=== PATIENT | male | born 1940 ===

== ENCOUNTER 2018-10-19 09:57 | Inpatient (IN) | payer MEDICARE ==
[2018-10-19] MEDS: Sodium Chloride 0.9% 1,000 ML IV SCH ×2 (11:07→21:54)
[2018-10-19 11:08] LABS: BASO # 0.1 K/uL (0.0-0.2); BASO % 1.2 % (0.0-2.0); EOS # 0.1 K/uL (0.0-0.7); EOS % 1.2 % (0.0-4.0); HEMOGLOBIN 13.8 g/dL (12.0-18.0); LYMPH # 1.6 K/uL (1.0-4.3); LYMPH % 16.1 % (20.0-40.0); MEAN CELL VOLUME 80.5 fl (80.0-94.0); MEAN CORPUSCULAR HEMOGLOBIN 26.1 pg (27.0-31.0); MEAN CORPUSCULAR HGB CONC 32.5 g/dL (33.0-37.0); MEAN PLATELET VOLUME 8.9 fl (7.2-11.7); MONO # 0.8 K/uL (0.0-0.8); MONO % 7.9 % (0.0-10.0); NEUT # 7.3 K/uL (1.8-7.0); NEUT % 73.6 % (50.0-75.0); RBC 5.27 Mil/uL (4.40-5.90); RED CELL DISTRIBUTION WIDTH 14.9 % (11.5-14.5); WHITE BLOOD COUNT 9.9 K/uL (4.8-10.8)
[2018-10-19 11:13] LABS: INR 1.1; PROTHROMBIN TIME 12.8 Seconds (9.8-13.1)
[2018-10-19 11:16] LABS: PARTIAL THROMBOPLASTIN TIME 30.8 Seconds (25.6-37.1)
[2018-10-19 11:17] LABS: ALB/GLOB RATIO 1.2 (1.0-2.1); ALBUMIN 3.7 g/dL (3.5-5.0); AST/SGOT 22 U/L (17-59); BLOOD UREA NITROGEN 23 mg/dl (9-20); GFR NON-AFRICAN AMERICAN > 60; HDL CHOLESTEROL 47 MG/DL (30-70)
[2018-10-19 11:22] LABS: ALT/SGPT 34 U/L (21-72)
[2018-10-19 11:28] LABS: LDL CHOLESTEROL 98 mg/dL (0-129)
--- NOTE | 2018-10-19 12:23 | ED PDOC ---
HPI:STROKE - Time Time: 10:25 - Historian Historian: Patient - Chief Complaint Chief Complaint: Numbness - Onset Date: 10/18/18 - Timing Timing: Currently Symptomatic - Location Locate left: Upper extremity - Severity of pain Maximum severity:: None Severity Current: None - Exacerbated by Exacerbated by:: Nothing - Relieved by Relieved by:: Nothing - TPA Positive for Contraindication: Yes Reason tPA is not being Administered: symptoms ongoing >3hrs and NIHSS <4 - Notes: Notes:: 77yo male c/o left 3/4/5th finger numbness and difficulty grasping objects yesterday. Per family member he could not get his glove on L hand appropriately, kept dropping it yesterday. Symptoms started yesterday afternoon. Associated w mild headache overnight. Denies change in speech, vision, gait, denies facial droop or syncope. Family notes he had similar symptoms in the past and was told it was a stroke. Takes aspirin 81mg daily last yesterday. NIHSS Stroke Scale - Date/Time Evaluation Performed Date Performed: 10/19/18 Time Performed: 10:30 When Was NIHSS Performed: Baseline - How Severe is the Stroke Level of Consciousness: 0=Alert LOC to Questions: 0=Both comments correct LOC to commands: 0=Obeys both correctly Best Gaze: 0=Normal Visual: 0=No visual loss Facial: 0=Normal Motor Arm - Left: 0=No drift Motor Arm - Right: 0=No drift Motor Leg - Left: 0=No drift Motor Leg - Right: 0=No drift Limb Ataxia: 0=Absent Sensory: 1=Mild to moderate loss Best Language: 0=No aphasia Dysarthia: 0=Normal articulation Extinction & Inattention (Neglect): 0=Normal, no object Score: 1 rTPA Inclusion/Exclusion - Refusal of Treatment Patient Refused Treatment: No - Inclusion Criteria for Altepase Patient is 18 years or Older: Yes The Clinical Diagnosis of Ischemic Stroke That is Causing a Potentially Disabling Neurological Deficit: Yes Time of Onset is Well Established to be Less Than 270 Minute Before Treatment Wo uld Begin: No Risk/Benefit Discussed With Patient/Family Member Present: Yes - Warning to TPA With Conditions Condition: Stroke Serevity Too Mild Past Medical History Reviewed: Historical Data, Nursing Documentation, Vital Signs Vital Signs: Last Vital Signs Temp 97.9 F 10/19/18 10:04 Pulse 62 10/19/18 10:57 Resp 19 10/19/18 10:04 BP 163/92 H 10/19/18 10:57 Pulse Ox 96 10/19/18 10:57 - Medical History PMH: HTN Denies: Diabetes, Chronic Kidney Disease - Surgical History Surgical History: CABG - Family History Family History: States: Unknown Family Hx - Living Arrangements Living Arrangements: With Family - Social History Current smoker - smoking cessation education provided: No - Home Medications Home Medications: Ambulatory Orders Medication Instructions Recorded Aspirin [Aspirin Chewable] 81 mg PO DAILY 10/19/18 Levothyroxine [Synthroid] 25 mcg PO DAILY 10/19/18 Metoprolol Succinate XL [Toprol XL] 50 mg PO Q12 10/19/18 RX: Olmesartan [BenicarNf] 40 mg PO DAILY 10/19/18 Rosuvastatin Calcium [Crestor] 10 mg PO DAILY 10/19/18 - Allergies Allergies/Adverse Reactions: Allergies Allergy/AdvReac Type Severity Reaction Status Date / Time No Known Allergies Allergy Verified 10/19/18 10:04 Review of Systems Constitutional: Negative for: Fever Cardiovascular: Negative for: Chest Pain Respiratory: Negative for: Cough, Shortness of Breath Gastrointestinal: Negative for: Nausea, Vomiting Genitourinary Male: Negative for: Dysuria Musculoskeletal: Negative for: Neck Pain, Shoulder Pain Skin: Negative for: Rash Neurological: Positive for: Weakness, Numbness, Headache. Negative for: Incoordination, Change in Speech, Confusion, Seizures, Altered Mental Status, Dizziness Physical Exam - Reviewed Nursing Documentation Reviewed: Yes - Physical Exam Appears: Positive for: Well, Non-toxic, No Acute Distress Head Exam: Positive for: ATRAUMATIC, NORMAL INSPECTION, NORMOCEPHALIC Skin: Positive for: Normal Color, Warm, DRY Eye Exam: Positive for: EOMI, Normal appearance, PERRL ENT: Positive for: Normal ENT Inspection Neck: Positive for: Normal, Painless ROM Cardiovascular/Chest: Positive for: Regular Rate, Rhythm Respiratory: Positive for: CNT, Normal Breath Sounds Gastrointestinal/Abdominal: Positive for: Normal Exam, Soft Back: Positive for: Normal Inspection Extremity: Positive for: Normal ROM Neurologic/Psych: Positive for: Alert, Oriented, Other (mild subjective sensory loss ulnar distribution L hand, motor grossly intact) - Laboratory Results Result Diagrams: 10/20/18 06:15 10/20/18 06:15 Lab Results: PT 12.8 Seconds (9.8-13.1) 10/19/18 10:55 INR 1.1 10/19/18 10:55 APTT 30.8 Seconds (25.6-37.1) 10/19/18 10:55 Troponin I 0.0190 ng/mL (0.00-0.120) 10/19/18 10:55 Total Bilirubin 1.3 mg/dl (0.2-1.3) 10/19/18 10:55 AST 22 U/L (17-59) 10/19/18 10:55 ALT 34 U/L (21-72) 10/19/18 10:55 Alkaline Phosphatase 77 U/L (38-126) 10/19/18 10:55 Total Protein 6.9 G/DL (6.3-8.2) 10/19/18 10:55 Albumin 3.7 g/dL (3.5-5.0) 10/19/18 10:55 Globulin 3.2 gm/dL (2.2-3.9) 10/19/18 10:55 Albumin/Globulin Ratio 1.2 (1.0-2.1) 10/19/18 10:55 - ECG ECG: Positive for: Interpreted By Me ECG Rhythm: Positive for: Sinus Bradycardia, ST/T Changes, Nonspecific Changes Rate: 58 O2 Sat by Pulse Oximetry: 96 Pulse Ox Interpretation: Normal - Radiology X-Ray: Interpreted by Me X-Ray Interpretation: No Acute Disease (sternal wires) Medical Decision Making Medical Decision Making: not candidate for TPA given time now >18hrs and NIHSS <4 workup for cerebral ischemia, ICH vs peripheral nerve injury/apraxia, etc initiated labs reviewed clinically unremarkable PMD in [place] Patient took +ASA this morning as outpatient, he also takes crestor and BP medications daily. D/w Dr Leone cushion installer neuro rec adding plavix and admit for CVA workup D/w Dr Babcock cushion installer medicine Disposition - Clinical Impression Clinical Impression: Hand numbness - Patient ED Disposition Is Patient to be Admitted: Yes Counseled Patient/Family Regarding: Studies Performed, Diagnosis, Need For Followup - Disposition Disposition Time: 13:00 Condition: FAIR - Pt Status Changed To: Hospital Disposition Of: Observation - POA Present On Arrival: None
--- NOTE | 2018-10-19 12:45 | RAD ---
Date of service: 10/19/2018 HISTORY: Code Stroke COMPARISON: 05/02/2009 FINDINGS: LUNGS: No active pulmonary disease. PLEURA: No significant pleural effusion identified, no pneumothorax apparent. CARDIOVASCULAR: No aortic atherosclerotic calcification present. Normal heart size. Sternotomy wires noted. No pulmonary vascular congestion. OSSEOUS STRUCTURES: No significant abnormalities. VISUALIZED UPPER ABDOMEN: Normal. OTHER FINDINGS: None. IMPRESSION: No active disease.
--- NOTE | 2018-10-19 13:37 | CT ---
Date of service: 10/19/2018 PROCEDURE: CT HEAD WITHOUT CONTRAST. HISTORY: L hand numbness, headaches COMPARISON: 05/02/2009 TECHNIQUE: Axial computed tomography images were obtained through the head/brain without intravenous contrast. Supplemental Coronal and Sagittal projections created and reviewed. Radiation dose: Total exam DLP = 747.68 mGy-cm. This CT exam was performed using one or more of the following dose reduction techniques: Automated exposure control, adjustment of the mA and/or kV according to patient size, and/or use of iterative reconstruction technique. FINDINGS: HEMORRHAGE: No intracranial hemorrhage. BRAIN: No mass effect or edema. Cortical and cerebellar atrophy, periventricular small vessel disease. 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 VENTRICLES: Unremarkable. No hydrocephalus. CALVARIUM: Unremarkable. PARANASAL SINUSES: Unremarkable as visualized. No significant inflammatory changes. MASTOID AIR CELLS: Unremarkable as visualized. No inflammatory changes. OTHER FINDINGS: None. IMPRESSION: No acute intracranial abnormalities. No significant findings to account for the clinical presentation. No significant interval change compared to the prior examination(s).
--- NOTE | 2018-10-19 15:56 | CP.PCM.CON ---
History of Present Illness - History of Present Illness History of Present Illness: Neurology Consultation Note: Consult requested by Dr. Orourke. The patient is a 77-year-old man with a past medical history of HTN, HLD, hypothyroidism, who developed left hand numbness and clumsiness yesterday. He presented to the ED today and was not a candidate for IV tPA due to being outside the time window. Non-contrast CT scan of the head showed chronic lacunar basal ganglia (bilateral) and insular infarcts (left), but no acute findings. Review of Systems - Constitutional Constitutional: As Per HPI - EENT Eyes: absent: As Per HPI, Blind Spots, Blurred Vision, Change in Vision, Decreased Night Vision, Diplopia, Discharge, Dry Eye, Exophthalmos, Floaters, Irritation, Itchy Eyes, Loss of Peripheral Vision, Pain, Photophobia, Requires Corrective Lenses, Sees Flashes, Spots in Vision, Tunnel Vision, Other Visual Disturbances, Loss of Vision, Other Ears: absent: As Per HPI, Decreased Hearing, Ear Discharge, Ear Pain, Tinnitus, Abnormal Hearing, Disequilibrium, Dizziness, Other Nose/Mouth/Throat: absent: As Per HPI, Epistaxis, Nasal Congestion, Nasal Discharge, Nasal Obstruction, Nasal Trauma, Nose Pain, Post Nasal Drip, Sinus Pain, Sinus Pressure, Bleeding Gums, Change in Voice, Dental Pain, Dry Mouth, Dysphagia, Halitosis, Hoarsness, Lip Swelling, Mouth Lesions, Mouth Pain, Odynophagia, Sore Throat, Throat Swelling, Tongue Swelling, Facial Pain, Neck Pain, Neck Mass, Other - Cardiovascular Cardiovascular: absent: As Per HPI, Acrocyanosis, Chest Pain, Chest Pain at Rest, Chest Pain with Activity, Claudication, Diaphoresis, Dyspnea, Dyspnea on Exertion, Edema, Irregular Heart Rhythm, Pain Radiating to Arm/Neck/Jaw, Leg Edema, Leg Ulcers, Lightheadedness, Orthopnea, Palpitations, Paroxysmal Nocturnal Dyspnea, Pedal Edema, Radiating Pain, Rapid Heart Rate, Slow Heart Rate, Syncope, Other - Respiratory Respiratory: absent: As Per HPI, Cough, Dyspnea, Hemoptysis, Dyspnea on Exertion, Wheezing, Snoring, Stridor, Pain on Inspiration, Chest Congestion, Excessive Mucous Production, Change in Mucous Color, Pain with Coughing, Other - Gastrointestinal Gastrointestinal: absent: As Per HPI, Abdominal Pain, Belching, Bloating, Change in Bowel Habits, Change in Stool Character, Coffee Ground Emesis, Constipation, Cramping, Diarrhea, Dyspepsia, Dysphagia, Early Satiety, Excessive Flatus, Fecal Incontinence, Heartburn, Hematemesis, Hematochezia, Loose Stools, Melena, Nausea, Odynophagia, Temesmus, Vomiting, Other - Genitourinary Genitourinary: absent: As Per HPI, Change in Urinary Stream, Difficulty Urinating, Dysuria, Flank Pain, Hematuria, Pyuria, Nocturia, Urinary Incontinence, Urinary Frequency, Urinary Hesitance, Urinary Urgency, Voiding Freq/Small Amts, Freq UTI, Hx Renal/Bladder Calculi, Hx /Renal Surgery, Bladder Distension, Other - Musculoskeletal Musculoskeletal: absent: As Per HPI, Abnormal Gait, Arthralgias, Atrophy, Back Pain, Deformity, Joint Swelling, Limited Range of Motion, Loss of Height, Muscle Cramps, Muscle Weakness, Myalgias, Neck Pain, Numbness, Radiating Pain into Limb, Stiffness, Tingling, Other - Integumentary Integumentary: absent: As Per HPI, Acne, Alopecia, Bleeding Lesions, Change in Hair, Change in Nails, Change in Pigmentation, Changing Lesions, Dry Skin, Erythema, Furuncle, Hirsutism, Lesions, New Lesions, Non-Healing Lesions, Photosensitivity, Pruritus, Rash, Skin Pain, Skin Ulcer, Sores, Striae, Swelling, Unusual Bruising, Wounds, Jaundice, Other - Neurological Neurological: As Per HPI - Endocrine Endocrine: absent: As Per HPI, Change in Body Appearance, Change in Libido, Cold Intolorance, Deepening of Voice, Excessive Sweating, Fatigue, Flushing, Heat Intolorance, Increase in Ring/Shoe/Hat Size, Palpitations, Polydipsia, Polyphagia, Polyuria, Other Past Patient History - Past Social History Smoking Status: Former Smoker - CARDIAC Hx Cardiac Disorders: Yes - PULMONARY Hx Respiratory Disorders: No - NEUROLOGICAL Hx Neurological Disorder: No - HEENT Hx HEENT Problems: No - RENAL Hx Chronic Kidney Disease: No - ENDOCRINE/METABOLIC Hx Endocrine Disorders: No - HEMATOLOGICAL/ONCOLOGICAL Hx Blood Disorders: No - INTEGUMENTARY Hx Dermatological Problems: No - MUSCULOSKELETAL/RHEUMATOLOGICAL Hx Musculoskeletal Disorders: No - GASTROINTESTINAL Hx Gastrointestinal Disorders: No - GENITOURINARY/GYNECOLOGICAL Hx Genitourinary Disorders: No - PSYCHIATRIC Hx Psychophysiologic Disorder: No Hx Substance Use: No - SURGICAL HISTORY Hx Coronary Artery Bypass Graft: Yes - ANESTHESIA Hx Anesthesia: Yes Hx Anesthesia Reactions: No Hx Malignant Hyperthermia: No Meds Allergies/Adverse Reactions: Allergies Allergy/AdvReac Type Severity Reaction Status Date / Time No Known Allergies Allergy Verified 10/19/18 10:04 - Medications Medications: Current Medications Sodium Chloride (Sodium Chloride 0.9%) 1,000 mls @ 100 mls/hr IV .Q10H JOSE Last Admin: 10/19/18 11:07 Dose: 100 mls/hr Physical Exam - Constitutional Appears: Well - Head Exam Head Exam: ATRAUMATIC, NORMAL INSPECTION, NORMOCEPHALIC - Eye Exam Eye Exam: EOMI, Normal appearance, PERRL Pupil Exam: NORMAL ACCOMODATION, PERRL - ENT Exam ENT Exam: Mucous Membranes Moist, Normal Exam - Neck Exam Neck exam: Positive for: Normal Inspection - Respiratory Exam Respiratory Exam: Clear to Auscultation Bilateral, NORMAL BREATHING PATTERN - Cardiovascular Exam Cardiovascular Exam: REGULAR RHYTHM, +S1, +S2 - GI/Abdominal Exam GI & Abdominal Exam: Normal Bowel Sounds, Soft. 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 NIHSS = 2 - Psychiatric Exam Psychiatric exam: Normal Affect, Normal Mood - Skin Skin Exam: Dry, Intact, Normal Color, Warm Results - Vital Signs Recent Vital Signs: Last Vital Signs Temp 97.9 F 10/19/18 10:04 Pulse 61 10/19/18 15:44 Resp 15 10/19/18 15:44 BP 137/80 10/19/18 15:44 Pulse Ox 96 10/19/18 15:44 - Labs Result Diagrams: 10/19/18 10:55 10/19/18 10:55 Labs: Laboratory Results - last 24 hr 10/19/18 10/19/18 10/19/18 10:55 10:55 10:55 WBC 9.9 RBC 5.27 Hgb 13.8 Hct 42.4 MCV 80.5 MCH 26.1 L MCHC 32.5 L RDW 14.9 H Plt Count 229 MPV 8.9 Neut % (Auto) 73.6 Lymph % (Auto) 16.1 L [place] % (Auto) 7.9 Eos % (Auto) 1.2 Baso % (Auto) 1.2 Neut # (Auto) 7.3 H Lymph # (Auto) 1.6 [place] # (Auto) 0.8 Eos # (Auto) 0.1 Baso # (Auto) 0.1 PT 12.8 INR 1.1 APTT 30.8 Sodium 137 Potassium 3.6 Chloride 101 Carbon Dioxide 31 H Anion Gap 9 L BUN 23 H Creatinine 1.1 Est GFR ( Amer) > 60 Est GFR (Non-Af Amer) > 60 POC Glucose (mg/dL) Random Glucose 122 H Calcium 9.0 Total Bilirubin 1.3 AST 22 ALT 34 Alkaline Phosphatase 77 Troponin I 0.0190 Total Protein 6.9 Albumin 3.7 Globulin 3.2 Albumin/Globulin Ratio 1.2 Triglycerides 120 Cholesterol 168 LDL Cholesterol Direct 98 HDL Cholesterol 47 Blood Type Blood Type Confirm Antibody Screen BBK History Checked 10/19/18 10/19/18 10/19/18 10:55 10:56 11:31 WBC RBC Hgb Hct MCV MCH MCHC RDW Plt Count MPV Neut % (Auto) Lymph % (Auto) [place] % (Auto) Eos % (Auto) Baso % (Auto) Neut # (Auto) Lymph # (Auto) [place] # (Auto) Eos # (Auto) Baso # (Auto) PT INR APTT Sodium Potassium Chloride Carbon Dioxide Anion Gap BUN Creatinine Est GFR ( Amer) Est GFR (Non-Af Amer) POC Glucose (mg/dL) 132 H Random Glucose Calcium Total Bilirubin AST ALT Alkaline Phosphatase Troponin I Total Protein Albumin Globulin Albumin/Globulin Ratio Triglycerides Cholesterol LDL Cholesterol Direct HDL Cholesterol Blood Type O POSITIVE Blood Type Confirm O POSITIVE Antibody Screen Negative BBK History Checked No verified bt Assessment & Plan (1) Ischemic stroke Assessment and Plan: Likely due to small vessel disease with CT head showing bilateral basal ganglia and a left insular infarct that are chronic. I recommend the followin. Telemetry 2. MRI brain without contrast, MRA head/neck without contrast 3. Echocardiogram 4. HbA1c, lipid panel, B12, folate, vitamin D level, homocysteine level 5. Give Plavix loading dose 300 mg once, and continue Plavix 75 mg daily along with aspirin 81 mg daily 6. Fluids with NS at 100 mL/hr 7. Permissive HTN (only treat BP higher than 220/110 mm Hg for the next 48 jose carlos rs) 8. PT/OT eval and treatment Thank you very much for allowing me to participate in this patient's care. Status: Acute
[2018-10-19] MEDS ORDERED: Pneumococcal 23-Valent Vaccine IM ONE (18:06)
--- NOTE | 2018-10-19 20:29 | CARD ---
APPROVED REPORT Date of service: 10/19/2018 EKG Measurement Heart [id number] <Conclusion> Sinus bradycardia Left ventricular hypertrophy with repolarization abnormality Inferior infarct, age undetermined Abnormal ECG
[2018-10-20] MEDS: Levothyroxine 25 MCG TAB PO SCH (05:59)
[2018-10-20 07:35] LABS: MEAN CELL VOLUME 82.7 fl (80.0-94.0); MEAN CORPUSCULAR HEMOGLOBIN 26.1 pg (27.0-31.0); MEAN CORPUSCULAR HGB CONC 31.5 g/dL (33.0-37.0); RBC 5.76 Mil/uL (4.40-5.90); RED CELL DISTRIBUTION WIDTH 15.1 % (11.5-14.5); WHITE BLOOD COUNT 12.6 K/uL (4.8-10.8)
[2018-10-20 07:55] LABS: BLOOD UREA NITROGEN 15 mg/dl (9-20); CALCIUM 8.8 mg/dL (8.4-10.2); GFR NON-AFRICAN AMERICAN > 60
--- NOTE | 2018-10-20 13:04 | CP.PCM.HP ---
History of Present Illness - History of Present Illness History of Present Illness: 77 yo male w/ PMHx of HTN, HLD, hypothyroidism presented to ED with left hand numbness/weakness. Patient not candidate for IV tPA due to being outside the time window. CT scan of head showed chronic lacunar basal ganglia (bilateral) and insular infarcts (left). Neurology was consulted. Patient seen and examined at bedside. No complaints offered at this time denies cp, palpitations, headaches, sob. Allergies: as per chart Meds: as per chart Fam Hx: non-contributory Present on Admission - Present on Admission Any Indicators Present on Admission: No Review of Systems - Review of Systems All systems: reviewed and no additional remarkable complaints except (mentioned above) Past Patient History - Past Medical History & Family History Past Medical History?: Yes - Past Social History Smoking Status: Former Smoker - CARDIAC Hx Hypertension: Yes - PULMONARY Hx Respiratory Disorders: No - NEUROLOGICAL Hx Neurological Disorder: No - HEENT Hx HEENT Problems: No - RENAL Hx Chronic Kidney Disease: No - ENDOCRINE/METABOLIC Hx Endocrine Disorders: No - HEMATOLOGICAL/ONCOLOGICAL Hx Blood Disorders: No Hx AIDS: No Hx Human Immunodeficiency Virus (HIV): No - INTEGUMENTARY Hx Dermatological Problems: No - MUSCULOSKELETAL/RHEUMATOLOGICAL Hx Musculoskeletal Disorders: No Hx Falls: No - GASTROINTESTINAL Hx Gastrointestinal Disorders: No - GENITOURINARY/GYNECOLOGICAL Hx Genitourinary Disorders: No - PSYCHIATRIC Hx Psychophysiologic Disorder: No Hx Substance Use: No - SURGICAL HISTORY Hx Coronary Artery Bypass Graft: Yes - ANESTHESIA Hx Anesthesia: Yes Hx Anesthesia Reactions: No Hx Malignant Hyperthermia: No Has any member of the family had a problem w/ anesthesia?: No Meds Allergies/Adverse Reactions: Allergies Allergy/AdvReac Type Severity Reaction Status Date / Time No Known Allergies Allergy Verified 10/19/18 10:04 Physical Exam - Constitutional Appears: Non-toxic, No Acute Distress - Head Exam Head Exam: NORMAL INSPECTION - Eye Exam Eye Exam: Normal appearance - Neck Exam Neck exam: Positive for: Normal Inspection - Respiratory Exam Respiratory Exam: NORMAL BREATHING PATTERN - Cardiovascular Exam Cardiovascular Exam: +S1, +S2 - GI/Abdominal Exam GI & Abdominal Exam: Soft - Extremities Exam Extremities exam: Positive for: normal inspection - Neurological Exam Neurological exam: Alert, Oriented x3 - Psychiatric Exam Psychiatric exam: Normal Affect, Normal Mood - Skin Skin Exam: Normal Color, Warm Results - Vital Signs Recent Vital Signs: Last Vital Signs Temp 99.4 F 10/20/18 11:48 Pulse 86 10/20/18 11:48 Resp 18 10/20/18 11:48 BP 168/76 H 10/20/18 11:48 Pulse Ox 96 10/20/18 11:48 - Labs Result Diagrams: 10/21/18 06:45 10/21/18 04:00 Labs: Laboratory Results - last 24 hr 10/19/18 10/20/18 10/20/18 10:55 06:15 06:15 WBC 12.6 H RBC 5.76 Hgb 15.0 Hct 47.7 MCV 82.7 D MCH 26.1 L MCHC 31.5 L RDW 15.1 H Plt Count 248 Sodium 141 Potassium 3.8 Chloride 97 L Carbon Dioxide 30 Anion Gap 18 BUN 15 Creatinine 1.0 Est GFR ( Amer) > 60 Est GFR (Non-Af Amer) > 60 Random Glucose 102 Hemoglobin A1c 5.8 Calcium 8.8 Assessment & Plan (1) Ischemic stroke Status: Acute - Assessment and Plan (Free Text) Assessment: available diagnostic data reviewed neurology on board, appreciate recommendations pending MRI/MRA pending labs pending echo monitor labs monitor vitals PT eval pending rest of plan as ordered
--- NOTE | 2018-10-20 13:22 | CARD ---
APPROVED REPORT Date of service: 10/20/2018 EXAM: Two-dimensional and M-mode echocardiogram with Doppler and color Doppler. Other Information Quality : FairRhythm : NSR Technically limited study due to Poor parasternal windows INDICATION Numbness lt hand Surgery/Intervention CABG: Aortic Valve AoV Peak Mzndgvpg605.8cm/sAoV VTI31.7cmAO Peak GR.11mmHg LVOT Peak Xuywnspm333.4cm/sLVOT VTI27.38cmAO Mean GR.6mmHg Mitral Valve MV E Kwqmauxb27.5cm/sMV DECEL [id number] A Mjzmfnoe53.9cm/s MV CIB54haA/A ratio0.8MVA (PHT)4.21cm2 TDI Lateral E' Peak V9.78cm/sMedial E' Peak V7.58cm/sE/Lateral E'7.7 E/Medial E'10.0 LEFT VENTRICLE The left ventricle is normal size. There is normal left ventricular wall thickness. The left ventricular systolic function is normal. The estimated ejection fraction is 60-65% No regional wall motion abnormalities noted.. Transmitral Doppler flow pattern is Grade I-abnormal relaxation pattern. No left ventricle thrombus noted on this study. There is no ventricular septal defect visualized. There is no left ventricular aneurysm. There is no mass noted in the left ventricle. RIGHT VENTRICLE The right ventricle is normal size. There is normal right ventricular wall thickness. The right ventricular systolic function is normal. ATRIA The left atrium size is normal. The right atrium size is normal. The interatrial septum is intact with no evidence for an atrial septal defect. AORTIC VALVE The aortic valve is normal in structure. No aortic regurgitation is present. There is no aortic valvular stenosis. There is no aortic valvular vegetation. MITRAL VALVE The mitral valve is normal in structure. There is no evidence of mitral valve prolapse. There is no mitral valve stenosis. There is trace mitral valve regurgitation noted. TRICUSPID VALVE The tricuspid valve is normal in structure. There is no tricuspid valve regurgitation noted. There is no tricuspid valve prolapse or vegetation. There is no tricuspid valve stenosis. PULMONIC VALVE The pulmonary valve is normal in structure. There is no pulmonic valvular regurgitation. There is no pulmonic valvular stenosis. GREAT VESSELS The aortic root is normal in size. The ascending aorta is normal in size. The pulmonary artery is normal. The IVC is normal in size and collapses >50% with inspiration. PERICARDIAL EFFUSION There is no pericardial effusion. There is no pleural effusion. <Conclusion> Technically difficult study The estimated ejection fraction is 60-65% Transmitral Doppler flow pattern is Grade I-abnormal relaxation pattern. The left atrium size is normal. There is trace mitral valve regurgitation noted. There is no tricuspid valve regurgitation noted.
--- NOTE | 2018-10-20 15:41 | MRI ---
Date of service: 10/20/2018 PROCEDURE: MRI BRAIN WITHOUT CONTRAST HISTORY: Ischemic stroke vs small vessel disease COMPARISON: Comparison made with CT scan brain 10/19/2018.. Correlation also made with concurrent MRA of the brain TECHNIQUE: Multiplanar, multisequence MR images of the brain were obtained without intravenous contrast enhancement. FINDINGS: HEMORRHAGE: No acute parenchymal, subarachnoid nor extra-axial hemorrhage. No evidence of hemosiderin deposition is identified on gradient echo weighted sequence. DWI: Small acute infarct changes seen in the right superior posterior frontoparietal cortex.. BRAIN PARENCHYMA: Moderate chronic periventricular white matter ischemic changes seen extending into the white matter tracts of both basal nuclei. In addition, there are multiple more discrete lacunar type infarcts scattered about the deep and subcortical white matter as well as both basal nuclei. Extensive dilated perivascular spaces are present both basal nuclei as well as to a lesser degree deep and subcortical white matter both cerebral hemispheres. Moderate generalized volume loss. No obvious parenchymal nor extra-axial masses or collections seen on this noncontrast study. VENTRICLES: No obstructive hydrocephalus. CRANIUM: Unremarkable. ORBITS: Changes of bilateral cataract surgery. PARANASAL SINUSES/MASTOIDS: Small focal area polypoid like mucosal thickening right maxillary antrum and left chamber sphenoid sinus.. VASCULAR SYSTEM: Skull base flow voids intact. OTHER FINDINGS: None. IMPRESSION: No acute intracranial hemorrhage. There are several acute infarct changes seen along the surfaces of the right posterior frontal and parietal cortex at the vertex. Moderate chronic periventricular white matter ischemic changes with extension into the white matter tracts of both basal nuclei. Moderate generalized volume loss. Note these findings were discussed with 4 Juan Luis Patterson at approximately 3:30 p.m. with written down and read back verification.
--- NOTE | 2018-10-20 15:55 | MRI ---
Date of service: 10/20/2018 PROCEDURE: MR Angiography of the neck without contrast HISTORY: ischemic stroke vs small vessel disease COMPARISON: There TECHNIQUE: 3D [id number] angiography of the neck was performed. Rotating maximum intensity projection images of the cervical carotid and vertebral arteries were generated. The origins of the common carotid arteries were not visualized, which is a limitation inherent to the non-contrast time of flight technique. FINDINGS: RIGHT CAROTID ARTERIES: Common Carotid Artery: Normal. Carotid Bifurcation: Normal. Internal Carotid Artery:Normal. External Carotid Artery (proximal branches): Normal. LEFT CAROTID ARTERIES: Common Carotid Artery: Normal. Carotid Bifurcation: There is mild-moderate narrowing at the level of the left carotid bifurcation and extending into the origin of the left internal carotid artery estimated at approximately 50%.. Internal Carotid Artery:Normal. External Carotid Artery (proximal branches): Normal. VERTEBRAL ARTERIES: There asymmetry of the vertebral arteries right-sided which is larger in caliber/more dominant than the left side. OTHER FINDINGS: None. IMPRESSION: There is mild-moderate narrowing at the level of the left carotid bifurcation extending into the origin of the proximal left internal carotid artery estimated at approximately 50 %
--- NOTE | 2018-10-20 16:33 | MRI ---
Date of service: 10/20/2018 PROCEDURE: Magnetic Resonance Angiography Brain HISTORY: ischemic stroke vs small vessel disease COMPARISON: [place] made with concurrent MRI of the brain TECHNIQUE: 3D time of flight MR angiography of the intracranial arteries was performed. Rotating maximum intensity projection images were generated. FINDINGS: INTERNAL CAROTID ARTERIES: Unremarkable. The skull base, petrous, cavernous and supraclinoid segments are bilaterally widely patient. ANTERIOR CEREBRAL ARTERIES: Unremarkable. A1 and A2 segments are widely patent. Smaller distal branches unremarkable, as visualized. MIDDLE CEREBRAL ARTERIES: Unremarkable. M1 and M2 segments are widely patent. Perisylvian branches grossly symmetric. POSTERIOR CIRCULATION: Basilar Artery: Unremarkable. Distal Vertebral Arteries: Unremarkable. Posterior Cerebral Arteries: Unremarkable. Posterior Inferior Cerebellar Arteries: Unremarkable. ANEURYSM/ VASCULAR MALFORMATIONS: There appears to be is focal outpouching at the level of the origin of the left posterior communicating artery. This could represent a more small aneurysm. Consider follow-up CTA of the brain. OTHER FINDINGS: None. IMPRESSION: Possible small infundibulum or aneurysm at the origin of the left posterior communicating artery. Consider follow-up CTA of the brain.
[2018-10-20] MEDS: Sodium Chloride 0.9% 1,000 ML IV SCH (16:38)
[2018-10-20] MEDS: Enoxaparin 40 mg Syringe SC SCH (18:22)
[2018-10-21] MEDS: Sodium Chloride 0.9% 1,000 ML IV SCH ×3 (04:18→22:31)
[2018-10-21] MEDS: Levothyroxine 25 MCG TAB PO SCH (05:49)
[2018-10-21 07:13] LABS: MEAN CELL VOLUME 80.6 fl (80.0-94.0); MEAN CORPUSCULAR HEMOGLOBIN 26.3 pg (27.0-31.0); MEAN CORPUSCULAR HGB CONC 32.6 g/dL (33.0-37.0); RBC 5.32 Mil/uL (4.40-5.90); RED CELL DISTRIBUTION WIDTH 14.9 % (11.5-14.5); WHITE BLOOD COUNT 10.1 K/uL (4.8-10.8)
[2018-10-21] MEDS: Enoxaparin 40 mg Syringe SC SCH (09:08)
[2018-10-21 09:26] LABS: BLOOD UREA NITROGEN 17 mg/dl (9-20); CALCIUM 8.6 mg/dL (8.4-10.2); GFR NON-AFRICAN AMERICAN > 60
[2018-10-21 09:27] LABS: ALBUMIN 3.4 g/dL (3.5-5.0); ALT/SGPT 23 U/L (21-72); AST/SGOT 23 U/L (17-59)
[2018-10-21] MEDS ORDERED: Potassium Chloride 20 mEq ER Tab PO ONE (12:09)
--- NOTE | 2018-10-21 12:35 | US ---
Date of service: 10/21/2018 PROCEDURE: Duplex ultrasound of the carotid and vertebral arteries. HISTORY: ?TIA COMPARISON: None available. TECHNIQUE: Grayscale and duplex Doppler evaluation of the cervical carotid and vertebral arteries were performed. The common carotid, carotid bifurcations and cervical ICA and proximal ECA were evaluated. The vertebral arteries were evaluated for gross patency and direction. FINDINGS: RIGHT CAROTID ARTERIES: Common Carotid Artery: Normal. Maximal flow velocity of 92.9 cm/s. Carotid Bifurcation: Normal. Internal Carotid Artery:Mild calcific plaque proximally. Maximal flow velocity of 69.9 cm/s. External Carotid Artery (proximal branches): Normal. Maximal flow velocity of 107.9 cm/s. ICA/CCA Ratio: 1.1 LEFT CAROTID ARTERIES: Common Carotid Artery: Normal. Maximal flow velocity of 121.7 cm/s. Carotid Bifurcation: Calcific plaque. Internal Carotid Artery:Mild calcific plaque proximally. Maximal flow velocity of 84.4 cm/s. External Carotid Artery (proximal branches): Normal. Maximal flow velocity of 186.7 cm/s. ICA/CCA Ratio: 1.3 VERTEBRAL ARTERIES: Right Vertebral Artery: Patent. Antegrade flow. Left Vertebral Artery: Patent. Antegrade flow. OTHER FINDINGS: No atherosclerotic calcification present IMPRESSION: Per NASCET criteria, less than 50 percent stenosis of the internal carotid arteries, bilaterally.
[2018-10-21 13:45] LABS: FOLATE 15.6 ng/mL
--- NOTE | 2018-10-21 14:01 | CP.PCM.PN ---
Subjective - Date & Time of Evaluation Date of Evaluation: 10/21/18 Time of Evaluation: 14:00 - Subjective Subjective: Mr. Purcell was seen and examined today at bedside. His family was present and we discussed the recent strokes that he has had despite being on aspirin and statin daily. The MRI findings are concerning for embolic etiology. Objective - Vital Signs/Intake and Output Vital Signs (last 24 hours): Temp Pulse Resp BP Pulse Ox 98.0 F 74 18 160/83 H 97 10/21/18 08:00 10/21/18 08:00 10/21/18 08:00 10/21/18 08:00 10/21/18 08:00 - Medications Medications: Current Medications Aspirin (Aspirin Chewable) 81 mg PO DAILY [facility] Last Admin: 10/21/18 09:08 Dose: 81 mg Atorvastatin Calcium (Lipitor) 20 mg PO DAILY [facility] Last Admin: 10/21/18 09:09 Dose: 20 mg Clopidogrel Bisulfate (Plavix) 75 mg PO DAILY [facility] Last Admin: 10/21/18 09:08 Dose: 75 mg Enoxaparin Sodium (Lovenox) 40 mg SC DAILY [facility]; Protocol Last Admin: 10/21/18 09:08 Dose: 40 mg Sodium Chloride (Sodium Chloride 0.9%) 1,000 mls @ 100 mls/hr IV .Q10H [facility] Last Admin: 10/21/18 04:18 Dose: Not Given Levothyroxine Sodium (Synthroid) 25 mcg PO DAILY@0630 [facility] Last Admin: 10/21/18 05:49 Dose: 25 mcg - Labs Labs: 10/21/18 06:45 10/21/18 04:00 PT 12.8 Seconds (9.8-13.1) 10/19/18 10:55 INR 1.1 10/19/18 10:55 APTT 30.8 Seconds (25.6-37.1) 10/19/18 10:55 - Constitutional Appears: Well - Head Exam Head Exam: ATRAUMATIC, NORMAL INSPECTION, NORMOCEPHALIC - Eye Exam Eye Exam: EOMI, Normal appearance, PERRL Pupil Exam: NORMAL ACCOMODATION, PERRL - ENT Exam ENT Exam: Mucous Membranes Moist, Normal Exam - Neck Exam Neck Exam: Full ROM, Normal Inspection. absent: Lymphadenopathy - Respiratory Exam Respiratory Exam: Clear to Ausculation Bilateral, NORMAL BREATHING PATTERN - Cardiovascular Exam Cardiovascular Exam: REGULAR RHYTHM, +S1, +S2. absent: Murmur - GI/Abdominal Exam GI & Abdominal Exam: Soft, Normal Bowel Sounds. absent: Tenderness - Rectal Exam Rectal Exam: Deferred - Extremities Exam Extremities Exam: Full ROM, Normal Capillary Refill, Normal Inspection. absent: Joint Swelling, Pedal Edema - Back Exam Back Exam: NORMAL INSPECTION - Neurological Exam Neurological Exam: Alert, Awake, CN II-XII Intact, Normal Gait, Oriented x3 Neuro motor strength exam: Left Upper Extremity: 5, Right Upper Extremity: 5, Left Lower Extremity: 4, Right Lower Extremity: 5 Additional comments: Decreased coordination of left hand/arm. Decreased sensation. NIHSS = 2 - Psychiatric Exam Psychiatric exam: Normal Affect, Normal Mood - Skin Skin Exam: Dry, Intact, Normal Color, Warm Assessment and Plan (1) Ischemic stroke Assessment & Plan: The infarcts appear to be cardio-embolic since they are bilateral, distal and seem to involve multiple areas chronically and acutely. I recommend prolonged cardiac monitoring to evaluate for atrial fibrillation. Cardiology may insert a Linq device prior to discharge and follow up. Since there has not been atrial fibrillation on telemetry, we will not start anticoagulation. Will continue dual antiplatelet therapy for 21 days and then continue only Plavix indefinitely since he had his infarcts while being on aspirin. Status: Acute (2) Abnormal MRA, brain Assessment & Plan: There is a possible left PComm aneurysm based on MRA head; however, this may be artifact. Will obtain CTA of the head/neck for further evaluation. Status: Acute
--- NOTE | 2018-10-21 15:33 | CP.PCM.PN ---
Subjective - Date & Time of Evaluation Date of Evaluation: 10/21/18 Time of Evaluation: 11:00 - Subjective Subjective: patient seen and examined at bedside. Interim events noted No complaints offered at this time denies cp/sob/fever/chills. available diagnostic data reviewed Objective Vital Signs Stable - Constitutional Appears: Non-toxic, No Acute Distress - Head Exam Head Exam: NORMAL INSPECTION - Eye Exam Eye Exam: Normal appearance - Respiratory Exam Respiratory Exam: NORMAL BREATHING PATTERN - Cardiovascular Exam Cardiovascular Exam: +S1, +S2 - GI/Abdominal Exam GI & Abdominal Exam: Soft - Neurological Exam Neurological Exam: Alert, Awake - Psychiatric Exam Psychiatric exam: Normal Affect, Normal Mood - Skin Skin Exam: Normal Color, Warm Assessment and Plan monitor vitals monitor labs Cont meds Cont tx consultants appreciated input rest of plan as ordered Assessment and Plan (1) Ischemic stroke Status: Acute
[2018-10-21] MEDS ORDERED: Sodium Chloride 0.9% 50 ML IV ONE (16:31)
[2018-10-21] MEDS ORDERED: Iodixanol 320 MG/ML 100 ML BOTTLE IV ONE (16:31)
[2018-10-22] MEDS ORDERED: Labetalol 5mg/ml (4ml) IVP STA (04:01)
[2018-10-22] MEDS ORDERED: Magnesium Sulfate 2 gm/50 ml 2 GM/50 ML BAG IVPB ONE (04:07)
[2018-10-22 04:23] LABS: HEMOGLOBIN 14.6 g/dL (12.0-18.0); MEAN CORPUSCULAR HEMOGLOBIN 26.4 pg (27.0-31.0); MEAN CORPUSCULAR HGB CONC 32.2 g/dL (33.0-37.0); RBC 5.52 Mil/uL (4.40-5.90); WHITE BLOOD COUNT 10.7 K/uL (4.8-10.8)
--- NOTE | 2018-10-22 04:25 | PCM.RRT ---
<Nicole Sanchez - Last Filed: 10/22/18 04:58> HOME AGENT Nurse Assessment - Situation HOME AGENT Responder Arrival Time: 15:40 HOME AGENT Reason for Call: Chest Pain, Hypertension - IV IV Inserted during HOME AGENT?: No I.Reason for HOME AGENT - A) Acute Change in Patient: (Select all that apply): Staff member or family is worried about patient Subjective: HOME AGENT Call Time: 3:53 am HOME AGENT Arrival Time: 3:54 am HOME AGENT Called by: RN Reason for HOME AGENT: new-onset chest pain, hypertension Initial HOME AGENT Vitals: BP 203/103 HR 94 SPO2 98% HOME AGENT called by RN on day 3 of admission due to new-onset chest pain and HTN for 77-year-old male initially admitted for L arm numbness subsequently found to have ischemic CVA. Upon arrival patient was in no acute distress and noted that his chest pain had resolved since getting up and going to the restroom. He described the chest pain as squeezing his "whole chest, down to the ribs" associated with shortness of breath. Initial HOME AGENT BP was 203/103, Labetalol 20mg IV given which normalized his BP to 130/79. EKG positive for ST changes in V2-V6 in comparison to EKG on admission. ECHO this admission shows diastolic dysfunction, EF 60-65% with normal RVSP. Troponin I x3 (Q6H) drawn along with morning labs. Pt was hypokalemic yesterday, s/p 40 K, CMP pending, 2 gm Mg given (current Mg 1.9). He admits to residual tingling/numbness in left hand and fingers but no new neurological deficits noted, denies change in vision, dizziness, diaphoresis, headache and extremity pain/swelling. Chest pain resolved before end of HOME AGENT. Patient currently on ASA 81 mg, Lipitor 20 mg and Plavix 75 mg. Lopressor 25 mg Q12H started. Patient remained alert, oriented and stable in no acute distress throughout HOME AGENT. All labs and chart data reviewed, attending Dr Jiang made aware. PE: in no acute distress CV: RRR Resp: good b/l air entry, no resp distress Chest: no tenderness to palpation Extremities: No edema, no calf tenderness, no motor weakness Abd: soft, non-tender Labs drawn: Troponin Q6 (x3) CMP CBC Meds given: Labetalol 20 mg IVP Nitro 5 mg sublingual Mag 2gm replaced Lopressor 25 mg Q12H End HOME AGENT Vitals: BP 130/79 HR 86 SPO2 99% HOME AGENT End time: 4:11 am HOME AGENT Team: Dr. Granado, Dr. Neves, Dr. Sanchez - Constitutional Appears: Non-toxic, No Acute Distress - Head Head Exam: NORMAL INSPECTION - Eyes Eye Exam: Normal appearance - Respiratory Exam Respiratory Exam: NORMAL BREATHING PATTERN. absent: Respiratory Distress - Cardiovascular Exam Cardiovascular Exam: REGULAR RHYTHM - GI/Abdominal Exam GI & Abdominal Exam: Soft. absent: Guarding, Tenderness - Neurological Exam Neurological Exam: Alert, Awake, Oriented x3 - Extremities Exam Extremities Exam: absent: Calf Tenderness <Sindhu Granado - Last Filed: 10/22/18 05:20> Attending/Attestation - Attestation I have personally seen and examined this patient.: Yes I have fully participated in the care of the patient.: Yes I have reviewed all pertinent clinical information, including history, physical exam and plan: Yes Notes (Text): 10/22/18 05:19 HOME AGENT called for CP, pressurelike on exertion to bathroom. BP 200s systolics, post 48 hours CVA. Labetalol 20mg IV given. EKG changes appreciated, t wave inversions lateral leads, new from 3 days prior. Pt on ASA, plavix. BB initiated. Troponin and labs sent. Trop in 3 hours as well. Agree with findings and plan as above.
[2018-10-22 04:34] LABS: ALBUMIN 3.8 g/dL (3.5-5.0); ALT/SGPT 33 U/L (21-72); AST/SGOT 29 U/L (17-59); BLOOD UREA NITROGEN 19 mg/dl (9-20); CALCIUM 8.9 mg/dL (8.4-10.2); GFR NON-AFRICAN AMERICAN > 60
[2018-10-22] MEDS: Levothyroxine 25 MCG TAB PO SCH (05:34)
--- NOTE | 2018-10-22 08:01 | CP.PCM.CON ---
History of Present Illness - History of Present Illness History of Present Illness: [facility] to follow. Past Patient History - Past Medical History & Family History Past Medical History?: Yes - Past Social History Smoking Status: Former Smoker - CARDIAC Hx Hypertension: Yes - PULMONARY Hx Respiratory Disorders: No - NEUROLOGICAL Hx Neurological Disorder: No - HEENT Hx HEENT Problems: No - RENAL Hx Chronic Kidney Disease: No - ENDOCRINE/METABOLIC Hx Endocrine Disorders: No - HEMATOLOGICAL/ONCOLOGICAL Hx Blood Disorders: No Hx AIDS: No Hx Human Immunodeficiency Virus (HIV): No - INTEGUMENTARY Hx Dermatological Problems: No - MUSCULOSKELETAL/RHEUMATOLOGICAL Hx Musculoskeletal Disorders: No Hx Falls: No - GASTROINTESTINAL Hx Gastrointestinal Disorders: No - GENITOURINARY/GYNECOLOGICAL Hx Genitourinary Disorders: No - PSYCHIATRIC Hx Psychophysiologic Disorder: No Hx Substance Use: No - SURGICAL HISTORY Hx Coronary Artery Bypass Graft: Yes - ANESTHESIA Hx Anesthesia: Yes Hx Anesthesia Reactions: No Hx Malignant Hyperthermia: No Has any member of the family had a problem w/ anesthesia?: No Meds Allergies/Adverse Reactions: Allergies Allergy/AdvReac Type Severity Reaction Status Date / Time No Known Allergies Allergy Verified 10/19/18 10:04 - Medications Medications: Current Medications Aspirin (Aspirin Chewable) 81 mg PO DAILY [facility] Last Admin: 10/21/18 09:08 Dose: 81 mg Atorvastatin Calcium (Lipitor) 20 mg PO DAILY [facility] Last Admin: 10/21/18 09:09 Dose: 20 mg Clopidogrel Bisulfate (Plavix) 75 mg PO DAILY [facility] Last Admin: 10/21/18 09:08 Dose: 75 mg Enoxaparin Sodium (Lovenox) 40 mg SC DAILY [facility]; Protocol Last Admin: 10/21/18 09:08 Dose: 40 mg Levothyroxine Sodium (Synthroid) 25 mcg PO DAILY@0630 [facility] Last Admin: 10/22/18 05:34 Dose: 25 mcg Metoprolol Tartrate (Lopressor) 25 mg PO Q12 [facility] Results - Vital Signs Recent Vital Signs: Last Vital Signs Temp 98.1 F 10/22/18 05:20 Pulse 84 10/22/18 05:20 Resp 18 10/22/18 05:20 BP 130/79 10/22/18 05:20 Pulse Ox 99 10/22/18 05:20 - Labs Result Diagrams: 10/22/18 04:16 10/22/18 04:16 Labs: Laboratory Results - last 24 hr 10/21/18 10/21/18 10/22/18 04:00 08:00 04:16 WBC 10.7 RBC 5.52 Hgb 14.6 Hct 45.3 MCV 82.0 MCH 26.4 L MCHC 32.2 L RDW 15.0 H Plt Count 224 Sodium 139 Potassium 3.2 L Chloride 98 Carbon Dioxide 28 Anion Gap 16 BUN 17 Creatinine 0.9 Est GFR ( Amer) > 60 Est GFR (Non-Af Amer) > 60 Random Glucose 99 Calcium 8.6 Phosphorus 3.1 Magnesium 1.9 Total Bilirubin 2.1 H AST 23 ALT 23 Alkaline Phosphatase 70 Troponin I Total Protein 6.8 Albumin 3.4 L Globulin 3.4 Albumin/Globulin Ratio 1.0 Vitamin B12 246 25-OH Vitamin D Total 20.2 L Folate 15.6 Homocysteine 10.7 TSH 3rd Generation 1.53 10/22/18 10/22/18 04:16 04:16 WBC RBC Hgb Hct MCV MCH MCHC RDW Plt Count Sodium 140 Potassium 3.4 L Chloride 100 Carbon Dioxide 28 Anion Gap 15 BUN 19 Creatinine 1.0 Est GFR ( Amer) > 60 Est GFR (Non-Af Amer) > 60 Random Glucose 105 Calcium 8.9 Phosphorus Magnesium Total Bilirubin 1.6 H AST 29 ALT 33 Alkaline Phosphatase 80 Troponin I 0.0390 Total Protein 7.4 Albumin 3.8 Globulin 3.7 Albumin/Globulin Ratio 1.0 Vitamin B12 25-OH Vitamin D Total Folate Homocysteine TSH 3rd Generation
[2018-10-22] MEDS: Enoxaparin 40 mg Syringe SC SCH (08:19)
--- NOTE | 2018-10-22 09:14 | CARD ---
APPROVED REPORT Date of service: 10/22/2018 EKG Measurement Heart [id number] <Conclusion> Normal sinus rhythm Inferior infarct, age undetermined ST abnormality, possible lateral subendocardial injury or ischemia Abnormal ECG
[2018-10-22] MEDS ORDERED: Potassium Chloride 20 mEq ER Tab PO ONE (10:58)
--- NOTE | 2018-10-22 12:07 | CP.PCM.PN ---
Subjective - Date & Time of Evaluation Date of Evaluation: 10/22/18 Time of Evaluation: 12:05 - Subjective Subjective: Neurology Follow-Up Note: Mr. smith was evaluated this morning. Family present at bedside. He still c/o numbness to the left hand which has not improved nor worsened. He had a [employer]ANK [employer] called early this morning for chest pain, however, since then he has no further chest pain. Currently denies h/a, dizziness, visual changes, chest pain, palpitations, sob, cough, abd pain, n/v/d. Objective - Vital Signs/Intake and Output Vital Signs (last 24 hours): Temp Pulse Resp BP Pulse Ox 97.8 F 73 20 135/73 96 10/22/18 08:25 10/22/18 08:25 10/22/18 08:25 10/22/18 08:25 10/22/18 08:25 - Medications Medications: Current Medications Aspirin (Aspirin Chewable) 81 mg PO DAILY [facility] Last Admin: 10/22/18 08:19 Dose: 81 mg Atorvastatin Calcium (Lipitor) 20 mg PO DAILY [facility] Last Admin: 10/22/18 08:19 Dose: 20 mg Clopidogrel Bisulfate (Plavix) 75 mg PO DAILY [facility] Last Admin: 10/22/18 08:19 Dose: 75 mg Enoxaparin Sodium (Lovenox) 40 mg SC DAILY [facility]; Protocol Last Admin: 10/22/18 08:19 Dose: 40 mg Levothyroxine Sodium (Synthroid) 25 mcg PO DAILY@0630 [facility] Last Admin: 10/22/18 05:34 Dose: 25 mcg Metoprolol Tartrate (Lopressor) 25 mg PO Q12 [facility] Last Admin: 10/22/18 08:19 Dose: 25 mg - Labs Labs: 10/22/18 04:16 10/22/18 04:16 PT 12.8 Seconds (9.8-13.1) 10/19/18 10:55 INR 1.1 10/19/18 10:55 APTT 30.8 Seconds (25.6-37.1) 10/19/18 10:55 - Constitutional Appears: Well, Non-toxic, No Acute Distress - Head Exam Head Exam: ATRAUMATIC, NORMAL INSPECTION, NORMOCEPHALIC - Eye Exam Eye Exam: EOMI, Normal appearance, PERRL Pupil Exam: NORMAL ACCOMODATION, PERRL - ENT Exam ENT Exam: Mucous Membranes Moist - Neck Exam Neck Exam: Full ROM, Normal Inspection - Respiratory Exam Respiratory Exam: NORMAL BREATHING PATTERN - Cardiovascular Exam Cardiovascular Exam: REGULAR RHYTHM (hr 55 on tele mx) - GI/Abdominal Exam GI & Abdominal Exam: Soft - Extremities Exam Extremities Exam: Full ROM, Normal Inspection. 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 Sensation and vibration decreased to left hand (from wrist to fingertips). Normal on the right side and lle No pronator drift noted; no dysmetria; no ataxia No tremors. - Psychiatric Exam Psychiatric exam: Normal Affect, Normal Mood - Skin Skin Exam: Normal Color Assessment and Plan (1) Ischemic stroke Assessment & Plan: Imaging reviewed: -MRA Neck (10/20/18): There is mild-moderate narrowing at the level of the left carotid bifurcation extending into the origin of the proximal left internal c arotid artery estimated at approximately 50 % -MRA head (10/20/18): Possible small infundibulum or aneurysm at the origin of the left posterior communicating artery. Consider follow-up CTA of the brain. -MRI Brain (10/20/18): No acute intracranial hemorrhage. There are several acute infarct changes seen along the surfaces of the right posterior frontal and parietal cortex at the vertex. Moderate chronic periventricular white matter ischemic changes with extension into the white matter tracts of both basal nuclei. Moderate generalized volume loss. Note these findings were discussed with 4 Juan Luis Patterson at approximately 3:30 p.m. with written down and read back verification. -CT Head (10/19/18): No acute intracranial abnormalities. No significant findings to account for the clinical presentation. No significant interval change compared to the prior examination(s). -ECHO (10/19/18): EF 60-65% -CTA head and neck done, results pending--will f/u with results. -Cardiology consulted for a possible LINQ. I discussed this at length with the pt and family and they are in agreement for this. -Continue ASA, Plavix, Statin. -Continue PT/OT -Notify neuro team of any acute changes in condition. Case discussed with Dr. Leone Status: Acute
[2018-10-22 12:37] VITALS: PULSE 67
--- NOTE | 2018-10-22 15:56 | CP.PCM.CON ---
History of Present Illness - History of Present Illness History of Present Illness: I was asked to see patient by Dr Jiang. Patient seen 10/22/18 [id number] Patient is a 77 year old male with HTN CAD s/p CABG hypercholeterolemia who presents with CVA. Patient developed left hand numnbess and weakness. He was seen by neurology. MRI findings seemed compatible with embolic event. He feels better at this time. Patient was placed on plavix. Review of Systems - Constitutional Constitutional: absent: As Per HPI, Anorexia, Chills, Daytime Sleepiness, Excessive Sweating, Fatigue, Fever, Frequent Falls, Headache, Increased Appetite, Lethargy, Malaise, Night Sweats, Snoring, Sleep Apnea, Weight Gain, Weight Loss, Weakness, Other - EENT Eyes: absent: As Per HPI, Blind Spots, Blurred Vision, Change in Vision, De creased Night Vision, Diplopia, Discharge, Dry Eye, Exophthalmos, Floaters, Irritation, Itchy Eyes, Loss of Peripheral Vision, Pain, Photophobia, Requires Corrective Lenses, Sees Flashes, Spots in Vision, Tunnel Vision, Other Visual Disturbances, Loss of Vision, Other Ears: absent: As Per HPI, Decreased Hearing, Ear Discharge, Ear Pain, Tinnitus, Abnormal Hearing, Disequilibrium, Dizziness, Other Nose/Mouth/Throat: absent: As Per HPI, Epistaxis, Nasal Congestion, Nasal Discharge, Nasal Obstruction, Nasal Trauma, Nose Pain, Post Nasal Drip, Sinus Pain, Sinus Pressure, Bleeding Gums, Change in Voice, Dental Pain, Dry Mouth, Dysphagia, Halitosis, Hoarsness, Lip Swelling, Mouth Lesions, Mouth Pain, Odynophagia, Sore Throat, Throat Swelling, Tongue Swelling, Facial Pain, Neck Pain, Neck Mass, Other - Cardiovascular Cardiovascular: absent: As Per HPI, Acrocyanosis, Chest Pain, Chest Pain at Rest, Chest Pain with Activity, Claudication, Diaphoresis, Dyspnea, Dyspnea on Exertion, Edema, Irregular Heart Rhythm, Pain Radiating to Arm/Neck/Jaw, Leg Edema, Leg Ulcers, Lightheadedness, Orthopnea, Palpitations, Paroxysmal Nocturnal Dyspnea, Pedal Edema, Radiating Pain, Rapid Heart Rate, Slow Heart Rate, Syncope, Other - Respiratory Respiratory: absent: As Per HPI, Cough, Dyspnea, Hemoptysis, Dyspnea on Exertion, Wheezing, Snoring, Stridor, Pain on Inspiration, Chest Congestion, Excessive Mucous Production, Change in Mucous Color, Pain with Coughing, Other - Gastrointestinal Gastrointestinal: absent: As Per HPI, Abdominal Pain, Belching, Bloating, Change in Bowel Habits, Change in Stool Character, Coffee Ground Emesis, Constipation, Cramping, Diarrhea, Dyspepsia, Dysphagia, Early Satiety, Excessive Flatus, Fecal Incontinence, Heartburn, Hematemesis, Hematochezia, Loose Stools, Melena, Nausea, Odynophagia, Temesmus, Vomiting, Other - Genitourinary Genitourinary: absent: As Per HPI, Change in Urinary Stream, Difficulty Urinating, Dysuria, Flank Pain, Hematuria, Pyuria, Nocturia, Urinary Incontinence, Urinary Frequency, Urinary Hesitance, Urinary Urgency, Voiding Freq/Small Amts, Freq UTI, Hx Renal/Bladder Calculi, Hx /Renal Surgery, Bladder Distension, Other - Musculoskeletal Musculoskeletal: absent: As Per HPI, Abnormal Gait, Arthralgias, Atrophy, Back Pain, Deformity, Joint Swelling, Limited Range of Motion, Loss of Height, Muscle Cramps, Muscle Weakness, Myalgias, Neck Pain, Numbness, Radiating Pain into Limb, Stiffness, Tingling, Other - Integumentary Integumentary: absent: As Per HPI, Acne, Alopecia, Bleeding Lesions, Change in Hair, Change in Nails, Change in Pigmentation, Changing Lesions, Dry Skin, Erythema, Furuncle, Hirsutism, Lesions, New Lesions, Non-Healing Lesions, Jotsin tosensitivity, Pruritus, Rash, Skin Pain, Skin Ulcer, Sores, Striae, Swelling, Unusual Bruising, Wounds, Jaundice, Other - Neurological Neurological: Disequilibrium, Lack of Coordination, Weakness - Psychiatric Psychiatric: absent: As Per HPI, Abnormal Sleep Pattern, Anhedonia, Anxiety, Auditory Hallucinations, Behavioral Changes, Change in Appetite, Change in Libido, Confusion, Depression, Difficulty Concentrating, Hallucinations, Homicidal Ideation, Hopelessness, Irritability, Memory Loss, Mood Swings, Panic Attacks, Paranoia, Suicidal Ideation, Visual Hallucinations, Tactile Hallucinations, Other - Endocrine Endocrine: absent: As Per HPI, Change in Body Appearance, Change in Libido, Cold Intolorance, Deepening of Voice, Excessive Sweating, Fatigue, Flushing, Heat Intolorance, Increase in Ring/Shoe/Hat Size, Palpitations, Polydipsia, Polyphagia, Polyuria, Other - Hematologic/Lymphatic Hematologic: absent: As Per HPI, Easy Bleeding, Easy Bruising, Lymphadenopathy, Other Past Patient History - Past Medical History & Family History Past Medical History?: Yes - Past Social History Smoking Status: Former Smoker - CARDIAC Hx Hypertension: Yes - PULMONARY Hx Respiratory Disorders: No - NEUROLOGICAL Hx Neurological Disorder: No - HEENT Hx HEENT Problems: No - RENAL Hx Chronic Kidney Disease: No - ENDOCRINE/METABOLIC Hx Endocrine Disorders: No - HEMATOLOGICAL/ONCOLOGICAL Hx Blood Disorders: No Hx AIDS: No Hx Human Immunodeficiency Virus (HIV): No - INTEGUMENTARY Hx Dermatological Problems: No - MUSCULOSKELETAL/RHEUMATOLOGICAL Hx Musculoskeletal Disorders: No Hx Falls: No - GASTROINTESTINAL Hx Gastrointestinal Disorders: No - GENITOURINARY/GYNECOLOGICAL Hx Genitourinary Disorders: No - PSYCHIATRIC Hx Psychophysiologic Disorder: No Hx Substance Use: No - SURGICAL HISTORY Hx Coronary Artery Bypass Graft: Yes - ANESTHESIA Hx Anesthesia: Yes Hx Anesthesia Reactions: No Hx Malignant Hyperthermia: No Has any member of the family had a problem w/ anesthesia?: No Meds Allergies/Adverse Reactions: Allergies Allergy/AdvReac Type Severity Reaction Status Date / Time No Known Allergies Allergy Verified 10/19/18 10:04 - Medications Medications: Current Medications Aspirin (Aspirin Chewable) 81 mg PO DAILY [facility] Last Admin: 10/22/18 08:19 Dose: 81 mg Atorvastatin Calcium (Lipitor) 20 mg PO DAILY [facility] Last Admin: 10/22/18 08:19 Dose: 20 mg Clopidogrel Bisulfate (Plavix) 75 mg PO DAILY [facility] Last Admin: 10/22/18 08:19 Dose: 75 mg Enoxaparin Sodium (Lovenox) 40 mg SC DAILY [facility]; Protocol Last Admin: 10/22/18 08:19 Dose: 40 mg Levothyroxine Sodium (Synthroid) 25 mcg PO DAILY@0630 [facility] Last Admin: 10/22/18 05:34 Dose: 25 mcg Metoprolol Tartrate (Lopressor) 25 mg PO Q12 [facility] Last Admin: 10/22/18 08:19 Dose: 25 mg Physical Exam - Constitutional Appears: Non-toxic - Head Exam Head Exam: NORMAL INSPECTION - Eye Exam Eye Exam: Normal appearance - ENT Exam ENT Exam: Mucous Membranes Moist - Neck Exam Neck exam: Positive for: Full Rom - Respiratory Exam Respiratory Exam: NORMAL BREATHING PATTERN - Cardiovascular Exam Cardiovascular Exam: REGULAR RHYTHM - GI/Abdominal Exam GI & Abdominal Exam: Normal Bowel Sounds, Soft - Rectal Exam Rectal Exam: Deferred - Extremities Exam Extremities exam: Positive for: normal inspection. Negative for: pedal edema - Back Exam Back exam: NORMAL INSPECTION - Neurological Exam Neurological exam: Alert, Oriented x3 - Psychiatric Exam Psychiatric exam: Normal Affect - Skin Skin Exam: Normal Color Results - Vital Signs Recent Vital Signs: Last Vital Signs Temp 97.6 F 10/22/18 12:36 Pulse 67 10/22/18 12:36 Resp 20 10/22/18 12:36 BP 171/84 H 10/22/18 12:36 Pulse Ox 98 10/22/18 12:36 - Labs Result Diagrams: 10/22/18 04:16 10/22/18 04:16 Labs: Laboratory Results - last 24 hr 10/21/18 10/22/18 10/22/18 08:00 04:16 04:16 WBC 10.7 RBC 5.52 Hgb 14.6 Hct 45.3 MCV 82.0 MCH 26.4 L MCHC 32.2 L RDW 15.0 H Plt Count 224 Sodium 140 Potassium 3.4 L Chloride 100 Carbon Dioxide 28 Anion Gap 15 BUN 19 Creatinine 1.0 Est GFR ( Amer) > 60 Est GFR (Non-Af Amer) > 60 Random Glucose 105 Calcium 8.9 Total Bilirubin 1.6 H AST 29 ALT 33 Alkaline Phosphatase 80 Troponin I Total Protein 7.4 Albumin 3.8 Globulin 3.7 Albumin/Globulin Ratio 1.0 25-OH Vitamin D Total 20.2 L 10/22/18 10/22/18 04:16 11:10 WBC RBC Hgb Hct MCV MCH MCHC RDW Plt Count Sodium Potassium Chloride Carbon Dioxide Anion Gap BUN Creatinine Est GFR ( Amer) Est GFR (Non-Af Amer) Random Glucose Calcium Total Bilirubin AST ALT Alkaline Phosphatase Troponin I 0.0390 0.0370 Total Protein Albumin Globulin Albumin/Globulin Ratio 25-OH Vitamin D Total - EKG Data EKG Interpreted by: Myself EKG shows normal: Sinus rhythm Assessment & Plan (1) Ischemic stroke Assessment and Plan: agree with Plavix. no evidence of atrial fibrillation at this time. Conitnue current medications. cand d/c today and will schedule ouptatient Linq. Status: Acute (2) HTN (hypertension) Assessment and Plan: blood pressure contol Status: Acute (3) CAD (coronary artery disease) Assessment and Plan: on antiplatelet therapy Status: Acute (4) Hypercholesterolemia Assessment and Plan: statin therapy Status: Acute
--- NOTE | 2018-10-22 16:04 | CP.PCM.PCO ---
Assessment/Plan - Assessment and Plan (Free Text) Assessment: Patient seen and examined this afternoon. Denies chest pain, shortness of breath, nausea or vomiting. Vital signs stable, labs wnl. Pending CTA head which was done today. Seen by Physical therapy, ambulating independently. Discussed plan with Dr Talley, patient will follow up with him outpatient for LINQ device implantation As per Neurology recommendations, patient to continue asa and plavix and follow up outpatient . Discussed with Dr Jiang. RX for lipitor, plavix and beta jan sent to his pharmacy.
--- NOTE | 2018-10-22 16:16 | CT ---
Date of service: 10/21/2018 PROCEDURE: CT Angiography of the Brain and Neck. HISTORY: Possible PComm aneurysm COMPARISON: None available. TECHNIQUE: CT angiography of the head and neck was performed following intravenous contrast administration. Coronal and sagittal maximum intensity projection reformatted images were generated. Contrast Dose: Visipaque 320, 100 cc Radiation dose: Total exam DLP = 409.55 mGy-cm. This CT exam was performed using one or more of the following dose reduction techniques: Automated exposure control, adjustment of the mA and/or kV according to patient size, and/or use of iterative reconstruction technique. FINDINGS: INTERNAL CEREBRAL ARTERIES: Note is made of partially calcified atherosclerosis of the bilateral cavernous internal carotid artery segments without significant stenosis. The skull base, petrous, and supraclinoid segments are bilaterally widely patent. The skull base, petrous, and supraclinoid segments are bilaterally widely patent. ANTERIOR CEREBRAL ARTERIES: Unremarkable. A1 and A2 segments are widely patent. Smaller distal branches unremarkable, as visualized. MIDDLE CEREBRAL ARTERIES: Unremarkable. M1 and M2 segments are widely patent. Perisylvian branches grossly symmetric. POSTERIOR CIRCULATION: Basilar Artery: Unremarkable. Distal Vertebral Arteries: Unremarkable. Posterior Cerebral Arteries: Unremarkable. Posterior Inferior Cerebellar Arteries: Unremarkable. NECK CTA: Common Carotid arteries: The bilateral common carotid appear widely patent from their origins to their bifurcations with no significant stenosis appreciated. No evidence to suggest common carotid artery dissection. Moderate carotid bulbar atherosclerotic plaque identified. Internal Carotid arteries: No significant stenosis is appreciated throughout the cervical internal carotid artery segments bilaterally and there is no evidence of dissection either. External Carotid arteries: Appear unremarkable bilaterally. Vertebral arteries: The bilateral vertebral arteries appear normal in caliber from their origins to their distal cervical segments. No significant stenosis or definite pattern of dissection. ANEURYSM/ VASCULAR MALFORMATIONS: None. OTHER FINDINGS: None. IMPRESSION: 1. No large vessel occlusion identified or high-grade stenosis throughout the head or neck major arteries as discussed above. 2. [id number] bilateral carotid bulbar atherosclerosis without significant stenosis in the proximal internal carotid arteries or distal common carotid arteries bilaterally. 3. Mild cavernous internal carotid artery segmental atherosclerosis without significant stenosis bilaterally. Concordant preliminary report from [facility], 10/21/2018 7:24 p.m..
[2018-10-22 16:34] VITALS: BP 156/88; RESP 18; TEMP 97.8; O2SAT 96
== END 2018-10-22 17:30 | disposition home or self-care (01) | DRG 66 ==
LOC: H.ER 09:57 → H.ERHOLD 13:46 → H.TEL 16:01 → OBSVTOIN 10-21 12:38
PROVIDERS: ADMIT Family Medicine; ATTEND Family Medicine
PROC: 3E0234Z Introduction of Serum, Toxoid and Vaccine into Muscle, Percutaneous Approach (ICD-10-PCS; principal; 2018-10-19)
DX: I63.9 Cerebral infarction, unspecified (principal); G83.24 Monoplegia of upper limb affecting left nondominant side; R29.701 NIHSS score 1; I25.10 Atherosclerotic heart disease of native coronary artery without angina pectoris; Z95.1 Presence of aortocoronary bypass graft; E78.00 Pure hypercholesterolemia, unspecified; Z23 Encounter for immunization; Z79.82 Long term (current) use of aspirin; I10 Essential (primary) hypertension; E78.5 Hyperlipidemia, unspecified; E03.9 Hypothyroidism, unspecified; Z87.891 Personal history of nicotine dependence; Z79.890 Hormone replacement therapy